=== PATIENT | male | born 1960 | race Caucasian/White ===

== ENCOUNTER → 2018-10-27 | Outpatient (CLI) | payer OTHER ==
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
== END ==
LOC: RADCTMAIN 10:41
PROVIDERS: ATTEND Emergency Medicine
DX: M40.292 Other kyphosis, cervical region (principal); S00.03XA Contusion of scalp, initial encounter
CPT/HCPCS: 70450; 72125